=== PATIENT | male | born 1950 | race Caucasian/White ===

== ENCOUNTER → 2022-09-04 | Outpatient (CLI) | payer MEDICARE | LOC: CT 15:33 | PROVIDERS: ATTEND Internal Medicine | DX: Z12.2 Encounter for screening for malignant neoplasm of respiratory organs (principal); F17.210 Nicotine dependence, cigarettes, uncomplicated | CPT/HCPCS: 71250 ==

== ENCOUNTER → 2024-03-30 | Outpatient (REF) | payer MEDICARE | LOC: RAD 11:18 | PROVIDERS: ATTEND Internal Medicine | DX: M54.50 Low back pain, unspecified (principal); M54.17 Radiculopathy, lumbosacral region; R25.2 Cramp and spasm | CPT/HCPCS: 72100 ==